=== PATIENT | male | born 1955 | race Caucasian/White ===

== ENCOUNTER 2020-06-30 16:46 | Emergency (ER) | payer MEDICARE, OTHER ==
[2020-06-30 18:24] LABS: HEMOGLOBIN 17.7 gm/dl (14.0-17.5); RED BLOOD COUNT 5.85 M/UL (4.20-5.50); WHITE BLOOD COUNT 8.8 K/UL (4.5-11.0)
== END 2020-06-30 20:48 | disposition home or self-care (01) ==
LOC: ER1 16:46
PROVIDERS: Physician Assistant
DX: Z53.8 Procedure and treatment not carried out for other reasons (principal)
CPT/HCPCS: 36415; 80053; 85025; 93005; 96374; 99284; J2405

== ENCOUNTER 2020-07-02 10:37 | Inpatient (IN) | payer MEDICARE, OTHER ==
[~2020-07-02] VITALS: Ht 185.4 cm; Wt 86.2 kg
[2020-07-02 12:38] LABS: HEMOGLOBIN 16.8 gm/dl (14.0-17.5); RED BLOOD COUNT 5.59 M/UL (4.20-5.50)
[2020-07-02 12:43] LABS: WHITE BLOOD COUNT 3.8 K/UL (4.5-11.0)
[2020-07-02] MEDS ORDERED: PROTONIX 40 MG40 M1 PO (22:32)
[2020-07-02] MEDS ORDERED: FOSINOPRIL SODI40 MG PO (22:35)
[2020-07-02] MEDS ORDERED: ADULT LOW DOSE81 MG PO (22:35)
[2020-07-02] MEDS ORDERED: AMLODIPINE BESY10 MG PO (22:36)
[2020-07-02] MEDS ORDERED: HYDROCODON-ACE1 EAC2 PO (22:36)
[2020-07-02] MEDS ORDERED: DURAGESIC1 EAC1 TD (22:37)
[2020-07-02] MEDS ORDERED: ZZZQUIL25 MG PO (22:39)
[2020-07-02] MEDS ORDERED: MELATONIN3 MG PO (22:40)
[2020-07-03 07:12] LABS: WHITE BLOOD COUNT 4.5 K/UL (4.5-11.0)
[2020-07-03 07:13] LABS: HEMOGLOBIN 14.5 gm/dl (14.0-17.5)
[2020-07-04 03:34] LABS: HEMOGLOBIN 14.4 gm/dl (14.0-17.5); RED BLOOD COUNT 4.84 M/UL (4.20-5.50); WHITE BLOOD COUNT 4.7 K/UL (4.5-11.0)
[2020-07-04 04:02] LABS: BUN/CREATININE RATIO 13 (0-10)
[2020-07-04] MEDS ORDERED: FLAGYL500 MG PO (12:54)
[2020-07-04] MEDS ORDERED: CIPRO500 MG/5 M PO (12:54)
== END 2020-07-04 19:30 | disposition home or self-care (01) | DRG 372 ==
LOC: ER1 10:37 → CDU 18:43 → MED SURG 4 18:43
PROVIDERS: Physician Assistant; ADMIT Internal Medicine
DX: A04.9 Bacterial intestinal infection, unspecified (principal); N17.9 Acute kidney failure, unspecified; A09 Infectious gastroenteritis and colitis, unspecified; E87.6 Hypokalemia; I10 Essential (primary) hypertension; G89.4 Chronic pain syndrome; N20.0 Calculus of kidney; Z20.822 Contact with and (suspected) exposure to COVID-19; E86.0 Dehydration; Z90.49 Acquired absence of other specified parts of digestive tract; Z79.82 Long term (current) use of aspirin; Z79.899 Other long term (current) drug therapy
CPT/HCPCS: 36415; 80048; 80053; 83735; 84100; 84132; 84439; 84443; 85025; 87040; 87045; 87046; 87077; 87186; 87449; 93005; 96374; 99284; 99285; J1650; J2405; J2543; J3480; J7030; U0002

== ENCOUNTER → 2022-01-01 | Outpatient (CLI) | payer MEDICARE, OTHER ==
[~2022-01-01] MED LIST: ADULT LOW DOSE81 MG PO; AMLODIPINE BESY10 MG PO; CIPRO500 MG/5 M PO; DURAGESIC1 EAC1 TD; FLAGYL500 MG PO; FOSINOPRIL SODI40 MG PO; HYDROCODON-ACE1 EAC2 PO; MELATONIN3 MG PO; PROTONIX 40 MG40 M1 PO; ZZZQUIL25 MG PO
[2022-01-01 20:32] LABS: BUN/CREATININE RATIO 11 (0-10)
[2022-01-03 10:15] LABS: CREATININE, URINE 87.4 mg/dL (Not Estab.)
== END ==
LOC: LAB 19:39
PROVIDERS: Internal Medicine Nephrology
DX: R80.9 Proteinuria, unspecified (principal)
CPT/HCPCS: 80053; 81001; 82043; 82570; 84156

== ENCOUNTER → 2022-01-22 | Outpatient (CLI) | payer MEDICARE | LOC: CT 15:29 | DX: N20.0 Calculus of kidney (principal) ==